=== PATIENT | male | born 1955 | race Caucasian/White ===

== ENCOUNTER 2018-03-25 20:20 | Emergency (ER) | payer MEDICAID ==
[2018-03-25 20:27] VITALS: BP 133/85
--- NOTE | 2018-03-25 20:30 | EDPHY ---
H & P Stated Complaint: leg pain Time Seen by Provider: 03/25/18 20:21 HPI/ROS: CHIEF COMPLAINT: Chronic left leg pain HISTORY OF PRESENT ILLNESS: 62-year-old homeless male arrives via ambulance. He had requested to [facility] but was complaining of chronic left knee pain which he states is chronic, present for several years related to DJD. Denies acute trauma. He is able to bear weight albeit with pain. Denies fever, chills. Denies history of IV drug use. Denies flu-like symptoms. REVIEW OF SYSTEMS: 10 systems reviewed and negative with the exception of the elements mentioned in the history of present illness PAST MEDICAL & SURGICAL HISTORY: Alcoholism history. DJD left knee. SOCIAL HISTORY: Last drink of alcohol earlier today PHYSICAL EXAM (Prior to examination, patient consented to physical exam, hands were washed and my usual and customary physical exam procedures followed) 1) GENERAL: Well-developed, well-nourished, alert and oriented. Appears to be in no acute distress. 2) HEAD: Normocephalic, atraumatic 3) HEENT: Pupils equal, round, reactive to light bilaterally. Sclera anicteric. 4) NECK: Full range of motion, no meningeal signs. 5) LUNGS: Clear auscultation bilaterally, no wheezes, no rhonchi, no retractions. 6) HEART: Regular rate and rhythm, no murmur, no heave, no gallop. 7) ABDOMEN: No guarding, no rebound, no focal tenderness, negative McBurney's, negative Toro's, negative Rovsing's, negative peritoneal sign, 8) MUSCULOSKELETAL: Bilateral lower extremities examined by myself. Normal coloration, normal temperature. Positive crepitus left knee. No pain with axial loading of the left knee. Soft compartments bilaterally. Normal coloration temperature to the knee. No overlying skin changes. Otherwise, Moving all extremities, no focal areas of tenderness, no obvious trauma. No peripheral edema or discoloration. 9) BACK: No CVA tenderness, no midline vertebral tenderness, no fluctuance, no step-off, no obvious trauma, no visual or palpable abnormality. 10) SKIN: No rash, no petechiae. 11) Psychiatric: Patient is oriented X 3, there is no agitation. DIFFERENTIAL DIAGNOSIS: In no particular order including but not limited to DJD, septic arthritis, crystal arthritis - Personal History Current Tetanus/Diphtheria Vaccine: Yes Current Tetanus Diphtheria and Acellular Pertussis (TDAP): Yes - Medical/Surgical History Hx Asthma: No Hx Chronic Respiratory Disease: No Hx Diabetes: No Hx Cardiac Disease: Yes Hx Renal Disease: No Hx Cirrhosis: Yes Hx Alcoholism: No Hx HIV/AIDS: No Hx Splenectomy or Spleen Trauma: No Other PMH: "bad heart" "bad Liver", hernia repair, arthritis - Social History Smoking Status: Current every day smoker Constitutional: Initial Vital Signs Temperature (C) 36.5 C 03/25/18 20:20 Heart Rate 92 03/25/18 20:20 Respiratory Rate 16 03/25/18 20:20 Blood Pressure 133/85 H 03/25/18 20:20 O2 Sat (%) 97 03/25/18 20:20 O2 Delivery Mode Room Air Allergies/Adverse Reactions: No Known Allergies Allergy (Unverified 08/17/14 14:04) Home Medications: Medication Instructions Recorded NO HOME MEDS 11/21/09 Medical Decision Making ED Course/Re-evaluation: 8:30 p.m.: I have offered ibuprofen which the patient happily accepts. He describes chronic left knee pain worse today because of change in weather system. Doubt septic arthritis. Doubt DVT. I do not identify indication for diagnostic or therapeutic arthrocentesis or ultrasonography. He has no evidence of cellulitis. He would like to go to the [facility] will be sent there with Librium prepack. She denies suicidal homicidal ideation. No evidence of delirium. Care of patient under supervision of secondary supervising physician Dr Reyes with whom I discussed case. Departure - Departure Disposition: Home, Routine, Self-Care Clinical Impression: Chronic pain of left knee Condition: Good Instructions: Knee Pain (ED) Additional Instructions: Return to the ER immediately if you experience discoloration, have worsening pain, numbness, tingling, or any other symptoms that concern you. Referrals: [facility],. [Clinic] - 2-3 days, call for appt.
[2018-03-25] MEDS ORDERED: CHLORDIAZEPOXIDE 25MG PREPK#6 BTL TAKEHOME ONE (20:32)
[2018-03-25] MEDS ORDERED: IBUPROFEN 800 MG TAB PO ONE (20:32)
== END 2018-03-25 20:46 | disposition home or self-care (01) ==
LOC: EDUNIT#
DX: M25.562 Pain in left knee (principal); Z59.0 Homelessness

== ENCOUNTER 2018-04-07 17:50 | Emergency (ER) | payer MEDICAID ==
--- NOTE | 2018-04-07 17:51 | EDPHY ---
H & P Time Seen by Provider: 04/07/18 17:51 HPI/ROS: CHIEF COMPLAINT: Left knee pain HISTORY OF PRESENT ILLNESS: Patient called EMS from [facility] the complaining of left knee pain which he has had for 10 years but is slightly worse today. He has known arthritis but says that it is hurting more today. He says he is able to walk but it hurts when he walks. No new injury. No swelling. No skin rash. No hip ankle or foot problem. No chest pain or shortness of breath. He is able to get up off the gurney unassisted and walked to the bed. REVIEW OF SYSTEMS: Eye: no change in vision ENT: no sore throat or earache or dental symptoms or facial pain. Cardiac: no chest pain or syncope Pulmonary: no cough or SOB Abdomen: no vomiting, diarrhea, abdominal pain Musculoskeletal: no back pain Skin: no rash Neuro: Mild headache today, not thunderclap in onset or worst of life. No neck pain or vertigo. No injury or trauma. Constitutional: no fever : no urinary symptoms A comprehensive 10 point review of systems is otherwise negative aside from elements mentioned in the history of present illness. PAST MEDICAL HISTORY: Hypertension not on medications, chronic arthritis of the left knee for more than 10 years. Social history: Frequent alcohol but none since yesterday General Appearance: Alert and conversant, cooperative. Eyes: No scleral icterus. Pupils equal reactive extraocular motion intact. ENT, Mouth: Normal mucous membranes. Normal pharynx without gum swelling or trismus or erythema or exudate. No facial swelling or tenderness. Normal tympanic membranes. Respiratory: Normal respiratory effort, breath sounds equal, lungs are clear to auscultation. Cardiovascular: Regular rate and rhythm. Gastrointestinal: Abdomen is soft and non tender. Neurological: Alert, face symmetric, normal motor and sensory in extremities. Skin: Warm and dry, no rashes. No bruises lacerations or other skin abnormalities over the left knee. Musculoskeletal: Compartments are soft in the thigh and leg. No calf tenderness. Normal range of motion of the knee actively and passively although he has some pain when that happens. Stable to varus and valgus stress and negative Momo's. Normal distal motor sensory and dorsalis pedis pulse. Psychiatric: Not agitated. Emergency Department course/MDM: Patient does not have red flags to suggest his headache is likely to be [employer] SERV[employer]CH[employer]ICIAN infection or intracranial bleed or hemorrhage or other medical surgical emergency. His knee is more likely to be exacerbation of his chronic arthritis. I think it is unlikely that he has fracture or compartment syndrome or DVT or arterial occlusion or infection. Septic joint unlikely. Tylenol, Motrin, knee immobilizer if necessary, primary clinic follow-up. Constitutional: Initial Vital Signs Temperature (C) 36.9 C 04/07/18 17:55 Heart Rate 94 04/07/18 17:55 Respiratory Rate 16 04/07/18 17:55 Blood Pressure 120/76 04/07/18 17:55 O2 Sat (%) 97 04/07/18 17:55 O2 Delivery Mode Room Air Allergies/Adverse Reactions: No Known Allergies Allergy (Verified 04/07/18 17:54) Home Medications: Medication Instructions Recorded NO HOME MEDS 11/21/09 Medical Decision Making - Data Points Medications Given: Discontinued Medications Acetaminophen (Tylenol) 650 mg PO EDNOW ONE Stop: 04/07/18 18:05 Last Admin: 04/07/18 18:30 Dose: 650 mg Ibuprofen (Motrin) 600 mg PO EDNOW ONE Stop: 04/07/18 18:05 Last Admin: 04/07/18 18:30 Dose: 600 mg Departure - Departure Disposition: Home, Routine, Self-Care Clinical Impression: Headache Qualifiers: Headache type: unspecified Headache chronicity pattern: acute headache Intractability: not intractable Qualified Code(s): R51 - Headache Left knee pain Qualifiers: Chronicity: chronic Qualified Code(s): M25.562 - Pain in left knee Condition: Good Instructions: Osteoarthritis (ED), Acute Headache (ED) Additional Instructions: Tylenol 650 and/or ibuprofen 600 mg by mouth every 8 hr as needed for pain over the next 3-5 days. Referrals: [facility],. [Clinic] - As per Instructions
[2018-04-07 17:58] VITALS: BP 120/76
[2018-04-07] MEDS ORDERED: IBUPROFEN 600 MG TAB PO ONE (18:04)
[2018-04-07] MEDS ORDERED: ACETAMINOPHEN 325 MG TAB PO ONE (18:04)
== END 2018-04-07 18:30 | disposition home or self-care (01) ==
LOC: EDUNIT#
DX: M25.562 Pain in left knee (principal); R51 Headache; I10 Essential (primary) hypertension